=== PATIENT | male | born 1945 | race Hispanic/Latino ===

== ENCOUNTER 2016-09-07 11:22 | Day surgery (SDC) | payer OTHER, MEDICARE ==
[~2016-09-07 11:22] MED LIST: IOPIDINE OS ONE; MYDRIACYL OS ONE; NEOFRIN OS ONE
[2016-09-07] MEDS ORDERED: IOPIDINE ONE (12:33)
[2016-09-07] MEDS ORDERED: AK-Dilate ONE ×2 (12:33→12:34)
[2016-09-07] MEDS ORDERED: MYDRIACYL ONE (12:33)
[2016-09-07] MEDS ORDERED: NEOFRIN OS ONE (12:50)
[2016-09-07] MEDS ORDERED: MYDRIACYL OS ONE (12:50)
[2016-09-07] MEDS ORDERED: IOPIDINE OS ONE (12:50)
[2016-09-07 13:03] VITALS: BP 110/60
== END 2016-09-07 11:23 | disposition home or self-care (01) ==
LOC: OR 11:22
PROVIDERS: ATTEND Specialist
DX: E11.36 Type 2 diabetes mellitus with diabetic cataract (principal); H26.492 Other secondary cataract, left eye; I10 Essential (primary) hypertension; Z79.84 Long term (current) use of oral hypoglycemic drugs; Z79.899 Other long term (current) drug therapy
CPT/HCPCS: 82962